=== PATIENT | male | born 1955 | race Caucasian/White ===

== ENCOUNTER → 2018-03-05 06:30 | Outpatient (CLI) | payer OTHER | END | disposition home or self-care (01) | LOC: LAB 06:30 | DX: C73 Malignant neoplasm of thyroid gland (principal); E89.0 Postprocedural hypothyroidism ==

== ENCOUNTER 2018-03-07 12:55 | Outpatient (CLI) | payer OTHER | END 2018-03-07 13:07 | disposition home or self-care (01) | LOC: NUCLEAR 12:55 | DX: C73 Malignant neoplasm of thyroid gland (principal) | CPT/HCPCS: 78018; 78020; A9528 ==

== ENCOUNTER → 2019-06-24 06:23 | Outpatient (CLI) | payer OTHER | END | disposition home or self-care (01) | LOC: LAB 06:23 | DX: C73 Malignant neoplasm of thyroid gland (principal); E89.0 Postprocedural hypothyroidism ==